=== PATIENT | male | born 1965 | race Caucasian/White ===

== ENCOUNTER 2021-12-26 10:16 | Emergency (ER) | payer MEDICARE, MEDICAID, SELFPAY ==
[2021-12-26 11:25] VITALS: BP 112/77; PULSE 92; RESP 18; TEMP 36.5; O2SAT 96; BMI 27.3
--- NOTE | 2021-12-26 13:56 | XR_ITS ---
WS: [id number] Exam: XR chest 1V portable [id number] Date/Time of Exam: 12/26/2021 2:03 PM Reason For Exam: chest pain The lungs are hyperinflated and clear. Normal cardiomediastinal silhouette. No pleural effusions. Reg ional bony elements are intact. XR/XR chest 1V portable [id number] IMPRESSION: 1. Pulmonary hyperinflation. No acute process.
--- NOTE | 2021-12-26 13:56 | ECG_ITS ---
[facility] Test Date: 2021-12-26 Pat Name: Logan Roque Department: Room: Gender: Male Senior Clinical Data Analyst: : 1965 Requested By: Jhonatan Luther Order Number: [id number] Ardon MD: Luisa Sharif M.D. Measurements Intervals [place] Rate: 95 P: 89 [place]: 131 QRS: 69 QRSD: 91 T: -38 QT: 357 QTc: 450 Interpretive Statements SINUS RHYTHM WITH SINUS ARRHYTHMIA MODERATE T-WAVE ABNORMALITY, CONSIDER INFERIOR ISCHEMIA [-0.1+ mV T-WAVE IN II/aVF] No previous ECG available for comparison Electronically Signed On 12-26-2021 16:44:39 CDT by Luisa Sharif M.D. [id number] f
--- NOTE | 2021-12-26 14:15 | W.ED.CHESTPA ---
HPI - Chest Pain General: Chief Complaint: Chest Pain Stated Complaint: BODY ACHES, PAIN, FLU LIKE SYMPTOMS Time Seen by Provider: 12/26/21 13:47 History of Present Illness: 56-year-old male presents to the emergency department chief complaint of generalized midsternal chest pain shortness of breath difficulty breathing with a mild productive cough with body aches and muscle aches been ongoing for greater than 1 week patient reports having a history of long-term smoking however reports no known history of asthma or COPD he does report having a previous history of heart attacks with cardiac stenting he does not recall any palpitations with the shortness of breath or chest discomfort he reports is non-exertional, he reports he has had a mild productive cough. Patient presents to the ER for further assessment and management. Associated symptoms: Reports dyspnea; Deny abdominal pain, fever(s), nausea, palpitations or vomiting Review of Systems General: Reports: 10 or more systems reviewed and unremarkable except in HPI and below Const: Denies: fever(s), chills, fatigue or malaise Eyes: Denies: change in vision or blurry vision Card: Reports: chest pain; Denies: palpitations Resp: Reports: dyspnea, productive cough and wheezing GI: Denies: abdominal pain, nausea or vomiting : Denies: flank pain Musc: Denies: extremity pain or extremity swelling Skin/Breast: Denies: rash or pruritus Neuro: Denies: headache(s) Psych: Denies: anxiety or depression Parth/Lymph: Denies: easy bleeding All/Imm: Denies: urticaria, throat swelling or facial swelling PFS ED PFSH: Social History Smoking and tobacco status: current every day smoker Physical Exam Const: COMMON NORMALS: no acute distress, patient oriented x3 and healthy appearing HENMT: COMMON NORMALS: normocephalic and atraumatic HEAD & SCALP: normocephalic and atraumatic Eye: COMMON NORMALS: Equal, round and reactive pupils present and EOMs intact bilaterally PUPIL: Yes Equal, round and reactive pupils present Neck/C-Spine: COMMON NORMALS: full ROM, supple and no JVD Lymph: LYMPHATIC: no lymphadenopathy noted Chest: COMMONS NORMALS: normal inspection of the chest and normal palpation of entire chest wall Resp: COMMON NORMALS: normal respiratory effort and No retractions EFFORT & INSPECTION: Yes able to speak in complete sentences and Yes symmetric chest movement AUSCULTATION: wheezes and diminished lung sounds OTHER: Diffuse reduced breath sounds appreciated bilaterally with expiratory wheezing noted bilaterally no crackles or rhonchi noted Cardio: COMMON NORMALS: no JVD, regular rate and regular rhythm RATE: regular rate and tachycardic (Slightly tachycardic on exam in low 100s) RHYTHM: regular rhythm GI: COMMON NORMALS: Normal to inspection, nondistended, normoactive bowel sounds present, Soft to palpation and non-tender INSPECTION: Yes normal to inspection PALPATION: Yes Soft to palpation : COMMON NORMALS: Yes no CVA tenderness BLADDER/KIDNEY EXAM: Yes no CVA tenderness Back/Pelvis: COMMON NORMALS: no CVA tenderness Extremity: COMMON NORMALS: normal to inspection and full ROM Neuro: COMMON NORMALS: patient oriented x3, CN's II-XII intact bilaterally, moves all extremities and no focal motor deficits Psych: COMMON NORMALS: mental status grossly normal, Normal thought process present, cooperative and normal affect THOUGHT PROCESS: Normal thought process present Skin: COMMON NORMALS: no rashes or lesions noted GENERAL SKIN EXAM: no rashes or lesions noted Course Vital Signs: Vital signs: Vital Signs Temperature 97.7 F 12/26/21 11:25 Pulse Rate 90 12/26/21 15:06 Respiratory Rate 15 12/26/21 15:06 Blood Pressure 133/85 12/26/21 15:06 Pulse Oximetry 98 12/26/21 15:06 MDM - Chest Pain Medical Decision Making Due to the patient's symptoms and condition lab work and imaging will be obtained IV will be established IV fluids provided for hydration underlying concerns of pneumonia versus acute bronchitis versus COPD exacerbation versus cardiac or prominent we will continue to follow. Lab work came back unremarkable 2 sets of troponins came back negative patient be subsequent discharged home advised to follow-up care in 2 to 3 days with patient advised to return the interim if any of his symptoms persist or worse. Lab Data : 12/26/21 14:52 12/26/21 14:52 Radiology Impressions Chest X-Ray 12/26/21 13:56 IMPRESSION: 1. Pulmonary hyperinflation. No acute process. Laboratory Results WBC 13.1 10^3/uL (4.0-10.0) H 12/26/21 14:52 RBC 5.45 10^6/uL (4.1-5.3) H 12/26/21 14:52 Hgb 16.3 g/dL (11.7-16.6) 12/26/21 14:52 Hct 47.4 % (42.0-52.0) 12/26/21 14:52 MCV 87.0 fl (80-94) 12/26/21 14:52 MCH 29.9 pg (28.0-34.0) 12/26/21 14:52 MCHC 34.4 g/dL (30.0-36.0) 12/26/21 14:52 RDW 13.6 % (12.1-15.1) 12/26/21 14:52 Plt Count 273 10^3/cmm (130-400) 12/26/21 14:52 MPV 8.9 fL (7.4-10.4) 12/26/21 14:52 Neut % (Auto) 74.8 % 12/26/21 14:52 Lymph % (Auto) 18.5 % 12/26/21 14:52 [place] % (Auto) 5.4 % 12/26/21 14:52 Eos % (Auto) 0.5 % 12/26/21 14:52 Baso % (Auto) 0.5 % 12/26/21 14:52 Neut # (Auto) 9.79 10^3/uL (1.8-7.7) H 12/26/21 14:52 Lymph # (Auto) 2.4 10^3/uL (0.8-4.8) 12/26/21 14:52 [place] # (Auto) 0.7 10^3/uL (0.2-0.9) 12/26/21 14:52 Eos # (Auto) 0.1 10^3/uL (0.0-0.8) 12/26/21 14:52 Baso # (Auto) 0.1 10^3/uL (0.0-0.1) 12/26/21 14:52 Nucleated RBC % (auto) 0 % 12/26/21 14:52 Nucleated RBCs # 0.0 /100WBC 12/26/21 14:52 Sodium 137 mmol/L (136-145) 12/26/21 14:52 Potassium 4.2 mmol/L (3.5-5.1) 12/26/21 14:52 Chloride 102 mmol/L (98-107) 12/26/21 14:52 Carbon Dioxide 22 mmol/L (22-29) 12/26/21 14:52 Anion Gap 17.2 (5-19) 12/26/21 14:52 BUN 5 mg/dL (6-20) L 12/26/21 14:52 Creatinine 0.5 mg/dL (0.7-1.2) L 12/26/21 14:52 GFR Calculation 170.8 mL/min (90-130) H 12/26/21 14:52 Glucose 116 mg/dL (65-115) H 12/26/21 14:52 POC Glucose 124 mg/dL (70-110) H 12/26/21 14:50 Calculated Osmolality 282 mOsm/kg (285-295) L 12/26/21 14:52 Calcium 10.0 mg/dL (8.5-10.5) 12/26/21 14:52 Total Bilirubin 0.5 mg/dL (0.15-1.2) 12/26/21 14:52 AST 14 U/L (0-40) 12/26/21 14:52 ALT 15 U/L (0-41) 12/26/21 14:52 Alkaline Phosphatase 85 IU/L (40-130) 12/26/21 14:52 Troponin T Baseline 8 ng/L (0-15) 12/26/21 14:52 Troponin T 120 Minute 6.69 ng/L (0-15) 12/26/21 16:50 NT-Pro-B Natriuret Pep 158 pg/mL (0-125) H 12/26/21 14:52 Total Protein 7.5 g/dL (6.6-8.7) 12/26/21 14:52 Albumin 4.7 g/dL (3.5-5.2) 12/26/21 14:52 Globulin 2.8 g/dL (1.3-4.6) 12/26/21 14:52 Lipase 20 U/L (13-60) 12/26/21 14:52 Influenza Type A Ag Negative (Negative) 12/26/21 15:11 Influenza Type B Ag Negative (Negative) 12/26/21 15:11 Discharge Plan Discharge Patient Disposition: Home Clinical Impression: Atypical chest pain, Acute bronchitis, Diffuse wheezing Condition: Stable Prescriptions: New azithromycin 250 mg tablet See Rx Instructions .ROUTE .COMPLEX Qty: 6 0RF Rx Instructions: For 500 mg dose pack: take 500 mg once daily for 3 days prednisone 20 mg tablet 20 mg PO BID 7 Days Qty: 14 0RF benzonatate 100 mg capsule 100 mg PO TID PRN (Reason: cough) Qty: 14 0RF ProAir HFA 90 mcg/actuation HFA aerosol inhaler 1 inh inhalation Q6H PRN (Reason: shortness of breath or wheezing) Qty: 6.7 0RF No Action acetaminophen [Tylenol] 325 mg capsule 325 mg PO QID PRN (Reason: Pain) 0RF gabapentin 300 mg capsule 300 mg PO TID 0RF duloxetine 30 mg capsule,delayed release(DR/EC) 30 mg PO DAILY 0RF Discharge Orders: Discharge ED (Routine); Ordered 12/26/21 Ordered By: Jhonatan Luther Referrals: Suresh Manuel MD [Physician] - 1-3 days (or your primary care doctor ) Discharge Diet: Usual diet Discharge Activity: Increase activity as tolerated Patient Instructions: Acute Bronchitis (ED), COPD (Chronic Obstructive Pulmonary Disease) (ED), Wheezing (ED) Activity Restrictions/Additional Instructions: Follow-up with your follow-up with your primary care doctor in 2 to 3 days, take medication as prescribed and return in the interim if any of his symptoms persist or worse. Coding Level of Care Code ED Forensic Anthropologist for Noelle Fwginette Exam Comprehensive
[2021-12-26 14:38] VITALS: BP 135/90; PULSE 89; RESP 16; O2SAT 99
[2021-12-26 14:55] LABS: Basophils # 0.1 10^3/uL (0.0-0.1); Basophils % 0.5 %; Eosinophils # 0.1 10^3/uL (0.0-0.8); Eosinophils % 0.5 %; Hematocrit 47.4 % (42.0-52.0); Hemoglobin 16.3 g/dL (11.7-16.6); Lymphocytes # 2.4 10^3/uL (0.8-4.8); Lymphocytes % 18.5 %; Mean Corpuscular HGB Conc 34.4 g/dL (30.0-36.0); Mean Corpuscular Hemoglobin 29.9 pg (28.0-34.0); Mean Platelet Volume 8.9 fL (7.4-10.4); Monocytes # 0.7 10^3/uL (0.2-0.9); Monocytes % 5.4 %; Neutrophils # 9.79 10^3/uL (1.8-7.7); Neutrophils % 74.8 %; Nucleated Red Blood Cells % 0 %; Platelet Count 273 10^3/cmm (130-400); Red Blood Count 5.45 10^6/uL (4.1-5.3); Red Cell Distribution Width 13.6 % (12.1-15.1); White Blood Count 13.1 10^3/uL (4.0-10.0)
[2021-12-26 14:57] LABS: Glucose Point of Care 124 mg/dL (70-110)
[2021-12-26] MEDS: aspirin 81 mg Chew Tablet 324 MG PO (15:01)
[2021-12-26] MEDS: sodium chloride 0.9% 1,000 ML 999 ML IV (15:02)
[2021-12-26] MEDS: ondansetron 2 mg/ML SDV 2 mL 4 MG IVP (15:04)
[2021-12-26 15:06] VITALS: BP 133/85; PULSE 90; RESP 15; O2SAT 98
[2021-12-26 15:19] LABS: Troponin(5th) Baseline 8 ng/L (0-15)
[2021-12-26 15:26] LABS: Alanine Aminotransferase 15 U/L (0-41); Albumin Level 4.7 g/dL (3.5-5.2); Alkaline Phosphatase 85 IU/L (40-130); Anion Gap 17.2 (5-19); Aspartate Amino Transferase 14 U/L (0-40); Blood Urea Nitrogen 5 mg/dL (6-20); Carbon Dioxide 22 mmol/L (22-29); Chloride 102 mmol/L (98-107); Globulin 2.8 g/dL (1.3-4.6); Glomerular Filtration Rate 170.8 mL/min (90-130); Glucose 116 mg/dL (65-115); Lipase 20 U/L (13-60); NT Pro B Type Natriuretic Pept 158 pg/mL (0-125); Osmolality Calculated 282 mOsm/kg (285-295); Potassium 4.2 mmol/L (3.5-5.1); Sodium 137 mmol/L (136-145); Total Bilirubin 0.5 mg/dL (0.15-1.2); Total Protein 7.5 g/dL (6.6-8.7)
[2021-12-26 15:44] LABS: Influenza A by IFA Negative (Negative); Influenza B by IFA Negative (Negative)
--- NOTE | 2021-12-26 15:56 | ECG_ITS ---
[facility] Test Date: 2021-12-26 Pat Name: Logan Roque Department: Room: Gender: Male Header Dock: : 1965 Requested By: Jhonatan Luther Order Number: [id number] Reva MD: Luisa Sharif M.D. Measurements Intervals [place] Rate: 78 P: 70 [place]: 142 QRS: 50 QRSD: 97 T: -45 QT: 388 QTc: 442 Interpretive Statements SINUS RHYTHM WITH OCCASIONAL VENTRICULAR PREMATURE COMPLEXES MODERATE T-WAVE ABNORMALITY, CONSIDER LATERAL ISCHEMIA [-0.1+ mV T-WAVE IN I/aVL/V5/V6] Compared to ECG 12/26/2021 11:30:56 Ventricular premature complex(es) now present Sinus arrhythmia no longer present T-wave abnormality still present Possible ischemia still present Electronically Signed On 12-26-2021 16:46:13 CDT by Luisa Sharif M.D. [id number]
[2021-12-26] MEDS: ketorolac 30 mg/mL INJ IVP (16:58)
[2021-12-26 17:19] LABS: Troponin 5 2HR 6.69 ng/L (0-15)
[2021-12-26 17:34] VITALS: BP 133/72; PULSE 88; RESP 18
[2021-12-26 17:47] LABS: Troponin 5 2HR Delta -1.31 ABS# (0-10)
== END 2021-12-26 17:36 | disposition home or self-care (01) ==
PROVIDERS: Emergency Medicine; Emergency Provider Emergency Medicine
DX: R07.89 Other chest pain (principal); J20.9 Acute bronchitis, unspecified; F17.200 Nicotine dependence, unspecified, uncomplicated; J44.9 Chronic obstructive pulmonary disease, unspecified; I25.2 Old myocardial infarction; Z95.5 Presence of coronary angioplasty implant and graft
CPT/HCPCS: 36416; 71045; 80053; 82962; 83690; 83880; 84484; 85025; 87804; 93005; 96361; 96374; 96375; 99284; J1885; J2405; J7030

== ENCOUNTER 2023-12-30 08:45 | Inpatient (IN) | payer MEDICARE, MEDICAID, SELFPAY ==
[2023-12-30] VITALS (41 sets, daily range): BP systolic 110–154; BP diastolic 65–103; PULSE 62–132; RESP 16–42; TEMP 36.8; O2SAT 82–99; BMI 23.4; BMI 21.7
--- NOTE | 2023-12-30 09:04 | XRR_ITS ---
PROCEDURE INFORMATION: Exam: XR Chest Exam date and time: 12/30/2023 9:12 AM Age: 58 years old Clinical indication: Cough and dyspnea and shortness of breath; Prior surgery; Surgery date: 6+ months; Surgery type: Open heart; Additional info: Dyspnea/cough TECHNIQUE: Imaging protocol: Radiologic exam of the chest. Views: 1 view. COMPARISON: CR XR chest 1V portable [id number] 12/26/2021 2:05 PM FINDINGS: Lungs: Marked elevation of the left hemidiaphragm and subsegmental left basilar atelectasis. COPD and interstitial prominence. Pleural spaces: Asymmetric right basilar airspace disease and pleural effusion, obscuring the right hemidiaphragm. . Heart/Mediastinum: Surgical ligation of left atrial appendage. Bones/joints: Osteopenia and degenerative change. Soft tissues: Skin aly to the right of midline. Gastrointestinal tract: Bowel dilatation the visualized left upper abdomen. XR/XR chest 1V portable [id number] IMPRESSION: 1. Asymmetric right basilar airspace disease and pleural effusion, obscuring the right hemidiaphragm. 2. Additional findings as described above.
[2023-12-30 09:24] LABS: ABG PH Result 7.46 (7.35-7.45); Alveolar-Arterial Oxygen Gradi 11.1 mmHg (5-10); Arterial Blood Gas Hematocrit 33.2 % (42-52); Base Excess ABG 7.1 mmol/L (-2.0-2.0); Blood Gas Allen Test Pos; Blood Gas Operator Identificat MONRO; Blood Gas Sample Site Brachial, right; Blood Gas Sample Type Arterial; Carboxyhemoglobin 1.4 %THgb (0.4-20.1); HCO3 ABG 31.8 mmol/L (22-26); HGB O2 Sat 90.1 % (95-100); Ionized Calcium Level - ABG 1.3 mmol/L (1.1-1.4); Methemoglobin 0.1 % (0.4-1.5); Oxygen Device NC; Oxygen Saturation ABG 91.5; PO2 ABG 60.4 mmHg (80.0-100.0); PO2 FiO2 Ratio Arterial Blood 0; Potassium Level - ABG 3.7 mmol/L (3.5-5.0); Total Hemoglobin 10.8 g/dL (14-18)
[2023-12-30 09:36] LABS: Troponin(5th) Baseline 22 ng/L (0-15)
[2023-12-30 09:46] LABS: Alanine Aminotransferase 10 U/L (0-41); Albumin Level 3.4 g/dL (3.5-5.2); Alkaline Phosphatase 129 U/L (40-130); Anion Gap 14.8 (5-19); Aspartate Amino Transferase 18 U/L (0-40); Blood Urea Nitrogen 9 mg/dL (8-23); Carbon Dioxide 28 mmol/L (22-29); Chloride 94 mmol/L (98-107); Creatinine Clr Calc Pharmacy 197.9678; Globulin 4.1 g/dL (1.3-4.6); Glomerular Filtration Rate 219.4 mL/min (90-130); Glucose 149 mg/dL (65-115); NT Pro B Type Natriuretic Pept 2187 pg/mL (0-125); Osmolality Calculated 277 mOsm/kg (285-295); Potassium 3.8 mmol/L (3.5-5.1); Sodium 133 mmol/L (136-145); Total Bilirubin 0.5 mg/dL (0.15-1.2); Total Protein 7.5 g/dL (6.6-8.7)
--- NOTE | 2023-12-30 10:08 | ECG_ITS ---
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 Measurements Intervals [place] Rate: 99 P: 75 [place]: 127 QRS: -9 QRSD: 109 T: 146 QT: 372 QTc: 479 Interpretive Statements SINUS RHYTHM WITH FREQUENT VENTRICULAR PREMATURE COMPLEXES MODERATE T-WAVE ABNORMALITY, CONSIDER LATERAL ISCHEMIA [-0.1+ mV T-WAVE IN I/aVL/V5/V6] Compared to ECG 12/26/2021 16:42:50 No significant changes Electronically Signed On 12-30-2023 18:30:34 CDT by Bryce Pierre M.D. [id number]
--- NOTE | 2023-12-30 10:33 | ED_ITS ---
HPI - SOB/Dyspnea 2 General: Chief Complaint: Shortness of Breath/Dyspnea Stated Complaint: Resp Issues Time Seen by Provider: 12/30/23 09:01 Source: patient Mode of arrival: ambulatory History of Present Illness: HPI Narrative: 58-year-old male presents to the emergen cy room with complaints of shortness of breath 2 days ago he had a spontaneous flash over with his oxygen concentrator while smoking he was seen in [place] for rose to his hands. He states since then has had progressively worsening time with breathing. Has a history of COPD and CHF. He did have some improvement with nebulizers and route. He is also complaining of shoulder pain from the fall he had no fractures on their evaluations at [place]. Denies chest pain. MD elicited complaint: shortness of breath and cough Pertinent past history: COPD Onset (ago): day(s) Timing: constant Severity: moderate Exacerbating factors: nothing Relieving factors: nothing Known history of: COPD Associated symptoms: Reports chest congestion and cough; Deny abdominal pain, chest pain, diaphoresis, dizziness, extremity pain, fever(s), hemoptysis, lightheadedness, myalgias, nausea, orthopnea, palpitations, paresthesias, polydipsia, polyuria, rash, sense of impending doom, syncope or vomiting Review of Systems 2 Const: Denies: fever(s), chills or diaphoresis Card: Denies: chest pain, palpitations, lightheadedness, syncope or orthopnea Resp: Reports: chest congestion; Denies: dyspnea or hemoptysis GI: Denies: abdominal pain, nausea or vomiting : Denies: dysuria, urinary frequency or urinary urgency Musc: Denies: neck pain, back pain or extremity pain Skin/Breast: Denies: rash Neuro: Denies: dizziness Endo: Denies: polyuria or polydipsia PFSH ED 2 PFSH: Medical History (Updated 01/08/24 @ 15:53 by Kadeem Zamora DO) History of MA (myocardial infarction) month ago Umbilical hernia Social History Smoking and tobacco/nicotine status: current every day tobacco/nicotine user Physical Exam 2 Const: GENERAL APPEARANCE: cooperative and comfortable O RIENTATION/CONSCIOUSNESS: Yes awake, Yes oriented to person, Yes oriented to place and Yes oriented to time HENMT: COMMON NORMALS: normocephalic, atraumatic and hearing grossly normal bilaterally HEAD & SCALP: normocephalic and atraumatic Resp: AUSCULTATION: rhonchi and wheezes Cardio: RATE: tachycardic GI: COMMON NORMALS: Soft to palpation and No hepatosplenomegaly present A USCULTATION: Yes normoactive bowel sounds PALPATION: Yes Soft to palpation, No Tenderness to palpation present (GI), No Guarding due to palpation present (GI) and Yes No hepatosplenomegaly present Extremity: COMMON NORMALS: normal to inspection, capillary refill normal, no clubbing, cyanosis or edema, no calf tenderness and no pedal edema Neuro: SENSORIUM/ORIENTATION: Yes oriented to person, Yes oriented to place and Yes oriented to time Skin: COMMON NORMALS: no rashes or lesions noted GENERAL SKIN EXAM: no rashes or lesions noted Course 2 Vital Signs: Vital signs: Vital Signs Temperature 97.6 F 01/04/24 11:42 Pulse Rate 95 01/04/24 16:29 Respiratory Rate 18 01/04/24 16:29 Blood Pressure 100/70 01/04/24 11:42 Pulse Oximetry 95 01/04/24 16:29 Oxygen Delivery Me thod Nasal Cannula 01/04/24 13:46 Oxygen Flow Rate 2 01/04/24 13:46 MDM - SOB/Dyspnea Medical Decision Making Pulmonary embolism pleural effusion exacerbation COPD rose on hands which has previously been evaluated at the burn clinic. Will admit Dr. Haywood is coming to see the patient to do thoracentesis we will hold off on heparin for the pulmonary embolism until he has completed his procedure. Discussed with hospitalist orders written Medical Records I reviewed the patient's medical records. Lab Data I reviewed the patient's lab results. 01/02/24 10:28 01/02/24 10:28 Labs/Radiology: Radiology Impressions Chest X-Ray 01/01/24 08:21 IMPRESSION: Cardiomegaly with mild congestion and small right pleural effusion. Laboratory Results WBC 16.12 10^3/uL (3.29-11.43) H 12/30/23 10:57 RBC 4.99 10^6/uL (3.85-5.65) 12/30/23 10:57 Hgb 11.90 g/dL (11.27-16.99) 12/30/23 10:57 Hct 39.9 % (37-53) 12/30/23 10:57 MCV 80.0 fl (82-101) L 12/30/23 10:57 MCH 23.8 pg (27-33) L 12/30/23 10:57 MCHC 29.8 g/dL (30-55) L 12/30/23 10:57 RDW 17.2 % (12.1-15.1) H 12/30/23 10:57 Plt Count 547 10^3/cmm (157-399) H 12/30/23 10:57 MPV 8.9 fL (7.4-10.4) 12/30/23 10:57 Neut % (Auto) 80.1 % 12/30/23 10:57 Lymph % (Auto) 8.3 % 12/30/23 10:57 [place] % (Auto) 10.8 % 12/30/23 10:57 Eos % (Auto) 0.1 % 12/30/23 10:57 Baso % (Auto) 0.2 % 12/30/23 10:57 Neut # (Auto) 12.91 10^3/uL (1.8-7.7) H 12/30/23 10:57 Lymph # (Auto) 1.3 10^3/uL (0.8-4.8) 12/30/23 10:57 [place] # (Auto) 1.7 10^3/uL (0.2-0.9) H 12/30/23 10:57 Eos # (Auto) 0.0 10^3/uL (0.0-0.8) 12/30/23 10:57 Baso # (Auto) 0.0 10^3/uL (0.0-0.1) 12/30/23 10:57 Nucleated RBC % (auto) 0 % 12/30/23 10:57 Nucleated RBCs # 0.0 /100WBC 12/30/23 10:57 Differential Comment Yes 12/30/23 16:00 Specimen Type Arterial 12/30/23 09:11 Sample Site Brachial, right 12/30/23 09:11 ABG pH 7.46 (7.35-7.45) H 12/30/23 09:11 ABG pCO2 45.0 mmHg (35-45) 12/30/23 09:11 ABG pO2 60.4 mmHg (80.0-100.0) L 12/30/23 09:11 ABG PO2/FiO2 Ratio 0 12/30/23 09:11 ABG HCO3 31.8 mmol/L (22-26) H 12/30/23 09:11 ABG O2 Saturation 91.5 12/30/23 09:11 ABG Base Excess 7.1 mmol/L (-2.0-2.0) H 12/30/23 09:11 Humberto Test Pos 12/30/23 09:11 A-a O2 Gradient 11.1 mmHg (5-10) H 12/30/23 09:11 Hematocrit 33.2 % (42-52) L 12/30/23 09:11 Hgb O2 Saturation 90.1 % (95-100) L 12/30/23 09:11 Carboxyhemoglobin 1.4 %THgb (0.4-20.1) 12/30/23 09:11 Methemoglobin 0.1 % (0.4-1.5) L 12/30/23 09:11 Total Hemoglobin 10.8 g/dL (14-18) L 12/30/23 09:11 Sodium 137.0 mmol/L (131-143) 12/30/23 09:11 Potassium 3.7 mmol/L (3.5-5.0) 12/30/23 09:11 Glucose 144.0 mg/dL (70-115) H 12/30/23 09:11 Ionized Calcium 1.3 mmol/L (1.1-1.4) 12/30/23 09:11 O2 Delivery Device Nc 12/30/23 09:11 O2 Liters/Min 2.0 % 12/30/23 09:11 FiO2 28.0 % 12/30/23 09:11 Industrial Roofer Helper ID [place] 12/30/23 09:11 Sodium 133 mmol/L (136-145) L 12/30/23 09:05 Potassium 3.8 mmol/L (3.5-5.1) 12/30/23 09:05 Chloride 94 mmol/L (98-107) L 12/30/23 09:05 Carbon Dioxide 28 mmol/L (22-29) 12/30/23 09:05 Anion Gap 14.8 (5-19) 12/30/23 09:05 BUN 9 mg/dL (8-23) 12/30/23 09:05 Creatinine 0.4 mg/dL (0.7-1.2) L 12/30/23 09:05 GFR Calculation 219.4 mL/min (90-130) H 12/30/23 09:05 Glucose 149 mg/dL (65-115) H 12/30/23 09:05 Calculated Osmolality 277 mOsm/kg (285-295) L 12/30/23 09:05 Lactic Acid 1.4 mmol/L (0.5-2.2) 12/30/23 15:10 Calcium 9.0 mg/dL (8.5-10.5) 12/30/23 09:05 Total Bilirubin 0.5 mg/dL (0.15-1.2) 12/30/23 09:05 AST 18 U/L (0-40) 12/30/23 09:05 ALT 10 U/L (0-41) 12/30/23 09:05 Alkaline Phosphatase 129 U/L (40-130) 12/30/23 09:05 Troponin T Baseline 22 ng/L (0-15) H 12/30/23 09:05 Troponin T 120 Minute 19.01 ng/L (0-15) H 12/30/23 11:50 Delta Troponin T -2.99 ABS# (0-10) L 12/30/23 11:50 Troponin T Hi Sens 6Hr 18.12 ng/L (0-15) H 12/30/23 15:10 Troponin T Hi Sens 6Hr Delta -3.88 ng/L (0-12) L 12/30/23 15:10 NT-Pro-B Natriuret Pep 2187 pg/mL (0-125) H 12/30/23 09:05 Total Protein 7.5 g/dL (6.6-8.7) 12/30/23 09:05 Albumin 3.4 g/dL (3.5-5.2) L 12/30/23 09:05 Globulin 4.1 g/dL (1.3-4.6) 12/30/23 09:05 Procalcitonin 0.06 ng/mL (0-0.5) 12/30/23 11:54 Urine Color Yellow (Yellow) 12/30/23 13:07 Urine Appearance Clear (CLEAR) 12/30/23 13:07 Urine pH 6.5 (5-7) 12/30/23 13:07 Ur Specific [place] 1.010 (1.005-1.030) 12/30/23 13:07 Urine Protein 1+ (Negative) H 12/30/23 13:07 Urine Glucose (UA) Norm (Normal) 12/30/23 13:07 Urine Ketones 1+ (Negative) H 12/30/23 13:07 Urine Blood Neg (Negative) 12/30/23 13:07 Urine Nitrate Negative (Negative) 12/30/23 13:07 Urine Bilirubin 1+ (Negative) H 12/30/23 13:07 Urine Urobilinogen 1 mg/dL (Negative) H 12/30/23 13:07 Ur Leukocyte Esterase Trace (Negative) H 12/30/23 13:07 Urine RBC 0-4 /hpf (0-2) H 12/30/23 13:07 Urine WBC 0-4 /hpf (0-5) H 12/30/23 13:07 Ur Squamous Epith Cells 0-4 /hpf (0-5) H 12/30/23 13:07 Amorphous Sediment Not Reportable 12/30/23 13:07 Urine Bacteria Trace /hpf (NONE) 12/30/23 13:07 Urine Mucus 2+ /hpf 12/30/23 13:07 Fluid Color Red 12/30/23 16:00 Fluid Appearance Cloudy 12/30/23 16:00 Fluid Specific Grav 1.010 12/30/23 16:00 Fluid pH 8.0 12/30/23 16:00 Fluid WBC 1666 /uL 12/30/23 16:00 Fluid RBC 283.000 10^3/uL 12/30/23 16:00 Fld Polynuclear WBCs # 0.796 12/30/23 16:00 Fld Polynuclear WBCs % 47.800 % 12/30/23 16:00 Fl Mononucl WBCs #(Auto) 0.870 12/30/23 16:00 Fl Mononuclear % Auto 52.200 % 12/30/23 16:00 Fld Crystal Laterality Right pleural fluid 12/30/23 16:00 Fluid Glucose 143.0 mg/dL 12/30/23 16:00 Fluid Albumin 2.7 g/dL 12/30/23 16:00 Fluid LDH 1238 U/L 12/30/23 16:00 Fluid Alk Phosphatase 78 IU/L 12/30/23 16:00 Fluid Cholesterol 90 mg/dL (0-200) 12/30/23 16:00 Fluid Triglycerides 49 mg/dL (0-150) 12/30/23 16:00 Fluid Uric Acid 3 mg/dL 12/30/23 16:00 Peritoneal Amylase TNP 12/30/23 16:00 Pleural Total Protein 5.1 g/dL 12/30/23 16:00 Pleural Amylase <10 U/L 12/30/23 16:00 All radiology interpretation(s) finalized by discharge Discharge Plan Discharge Patient Disposition: Admitted As Inpatient Admit Provider: Radha Lagos Clinical Impression: Pulmonary embolism, Oxygen dependent, Acute exacerbation of chronic obstructive airways disease, Pleural effusion on right, 2nd deg burn hand-mult Condition: Stable Discharge Diet: Cardiac Discharge Activity: Increase activity as tolerated, Use walker/crutches as instructed, As per PT/OT instructions and Oxygen as instructed Coding Level of Care Code ED Bracelet Former for Noelle Gore
--- NOTE | 2023-12-30 10:37 | CT_ITS ---
WS: [id number] CT CHEST ANGIOGRAPHY WITH REFORMATS HISTORY: abnotmal CXR/chest pain TECHNIQUE: Contiguous axial images are obtained through the chest during arterial injection of intrav enous contrast. Images are reconstructed to evaluate the pulmonary arteries. MIP imaging also reviewe d. All CT scans at [facility] use at least one of these dose optimization techniques: automat ed exposure control; mA and/or kV adjustment per patient size (includes targeted exams where dose is matched to clinical indication); or iterative reconstruction. CONTRAST: Omnipaque 350; 100 mL IV. DLP: 359.63 mGy.cm COMPARISON: None available. Adequate opacification of the central pulmonary arteries. No definite pulmonary embolism. Limited opa cification of the segmental and distal branches. No PE identified. Atherosclerosis aorta. Prior CABG. There is marked dehiscence at the sternotomy site. At the sternotomy site there is fat st randing. There are also surgical sutures along the anterior chest wall. Small fluid collection measur ing 2.5 x 0.9 cm in the anterior LEFT mid thorax which may be a small abscess. Soft tissue inflammati on extends to the inferior sternotomy site to about the RIGHT pericardium. There is a small pericardi al effusion. Marked enlargement of the LEFT heart chambers. Low-attenuation fluid collection posterior mid RIGHT pleural space. Fluid collection extends inferior ly. There is a small layering associated pleural effusion. Compressive atelectasis at the lung bases, LEFT greater than RIGHT. IMPRESSION: 1. No central pulmonary embolism. 2. Indeterminate for peripheral nonobstructing segmental emboli. 3. Soft tissue inflammation along the central chest wall along with sternal dehiscence. There is no fluid collection but mediastinitis needs to be considered. Dehiscence of the sternotomy site. 4. There is a small anterior pleural collection containing air in the upper LEFT chest. Small pleura l-based abscess is not excluded. 5. Additional loculated RIGHT pleural effusion with additional free-flowing small RIGHT effusion.
[2023-12-30] MEDS: dexamethasone 10 mg/mL INJ IM (10:51)
[2023-12-30 11:05] LABS: Basophils % 0.2 %; Eosinophils % 0.1 %; Hematocrit 39.9 % (37-53); Lymphocytes # 1.3 10^3/uL (0.8-4.8); Lymphocytes % 8.3 %; Mean Corpuscular HGB Conc 29.8 g/dL (30-55); Mean Corpuscular Hemoglobin 23.8 pg (27-33); Mean Platelet Volume 8.9 fL (7.4-10.4); Monocytes # 1.7 10^3/uL (0.2-0.9); Monocytes % 10.8 %; Neutrophils # 12.91 10^3/uL (1.8-7.7); Neutrophils % 80.1 %; Nucleated Red Blood Cells % 0 %; Platelet Count 547 10^3/cmm (157-399); Red Blood Count 4.99 10^6/uL (3.85-5.65); Red Cell Distribution Width 17.2 % (12.1-15.1); White Blood Count 16.12 10^3/uL (3.29-11.43)
--- NOTE | 2023-12-30 11:24 | ECG_ITS ---
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 Measurements Intervals [place] Rate: 106 P: 91 [place]: 131 QRS: 18 QRSD: 120 T: 105 QT: 358 QTc: 475 Interpretive Statements SINUS TACHYCARDIA WITH OCCASIONAL VENTRICULAR PREMATURE COMPLEXES INFERIOR MYOCARDIAL INFARCTION , PROBABLY OLD [40+ ms Q WAVE AND/OR ST/T ABNORMALITY IN II/aVF] MODERATE T-WAVE ABNORMALITY, CONSIDER LATERAL ISCHEMIA [-0.1+ mV T-WAVE IN I/aVL/V5/V6] Compared to ECG 12/30/2023 10:08:17 Myocardial infarct finding now present Sinus rhythm no longer present T-wave abnormality still present Possible ischemia still present Electronically Signed On 12-30-2023 18:53:54 CDT by Bryce Pierre M.D. [email or web address]
[2023-12-30] MEDS: ipratropium-albuterol 3 mL Neb INHALATION (11:25)
[2023-12-30 11:26] LABS: Lactic Sepsis W/Reflex 1.6 mmol/L (0.5-2.2)
[2023-12-30] MEDS: iohexol 350 mg/mL 500 mL Btl (per mL) IV (11:28)
--- NOTE | 2023-12-30 12:04 | PC.PHAR ---
PT STATES HIS SON HAS BEEN FILLING HIS MED [employer]SULT[employer] PT STATES HIS SON ISNT ABLE TO KEEP DOING IT STATES HE NEEDS HELP SETTING HIS MEDS UP-CALLED PTS SON SHANTE [phone] STATES HE DOESN'T KNOW PTS MEDS WITHOUT THE BOTTLES STATES THE PT LIVES 30 MINUTES AWAY AND ISNT GOING TO GET THEM-CALLED PTS PHARMACY AND VERIFIED WHAT HAS BEEN FILLED RECENTLY-[facility] STATES ON 10/22/23 30D/S THEY FILLED LIPITOR 80MG HS NO REFILLS-KCL 20MEQ BID FILLED 10/26/23 30D/S NO REFILLS-AND LASIX 20MG BID FILLED 10/22/23 30D/S NO REFILLS-MEDICATIONS ENTERED ARE THE OTHER MEDS [facility] HAS FILLED RECENTLY-
[2023-12-30 12:14] LABS: Troponin 5 2HR 19.01 ng/L (0-15)
[2023-12-30 12:15] LABS: Troponin 5 2HR Delta -2.99 ABS# (0-10)
[2023-12-30 13:52] LABS: Add Urine Microscopic? YES; Bacteria Urine TRACE /hpf; Bilirubin Urine 1+ (Negative); Blood Urine Neg (Negative); Glucose Urine UA Norm (Normal); Ketones Urine 1+ (Negative); Leukocyte Esterase Urine Trace (Negative); Mucus Urine 2+ /hpf; Nitrate Urine Negative (Negative); Protein Urine 1+ (Negative); RBC Urine 0-4 /hpf (0-2); Squamous Epithelial Cell Urine 0-4 /hpf (0-5); Urine Appearance Clear (CLEAR); Urine Color Yellow (Yellow); Urobilinogen Urine 1 mg/dL (Negative); WBC Urine 0-4 /hpf (0-5); pH Urine 6.5 (5-7)
[2023-12-30 13:53] LABS: Add Urine Culture? No
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
--- NOTE | 2023-12-30 14:36 | PM.HP ---
Providers/Chief Complaint Admitting Physician: Dr. Radha Lagos Primary Care Provider: Dr. Angel Park Chief Complaint: Resp Issues History of Present Illness Logan Roque is a 58 year old male Medications/Allergies Home Medications Medication Instructions Recorded Confirmed Last Taken Type albuterol sulfate 90 mcg/actuation 1 inh inhalation Q6H PRN shortness 12/26/21 12/30/23 Unknown Rx aerosol inhaler (ProAir HFA) of breath or wheezing #6.7 grams duloxetine 30 mg capsule,delayed 30 mg PO DAILY 12/26/21 12/30/23 Unknown History release gabapentin 300 mg capsule 300 mg PO TID 12/26/21 12/30/23 Unknown History amoxicillin 875 mg-potassium 1 tab PO BID 12/30/23 12/30/23 Unknown History clavulanate 125 mg tablet clopidogrel 75 mg tablet 75 mg PO DAILY 12/30/23 12/30/23 Unknown History fluconazole 200 mg tablet 200 mg PO EVERY OTHER DAY 12/30/23 12/30/23 Unknown History hydrocodone 10 mg-acetaminophen 1 - 2 tab PO Q6H PRN Pain 12/30/23 12/30/23 Unknown History 325 mg tablet metoprolol succinate 25 mg 12.5 mg PO DAILY 12/30/23 12/30/23 Unknown History tablet,extended release 24 hr nitroglycerin 0.4 mg sublingual 0.4 mg sublingual Q5M PRN Chest 12/30/23 12/30/23 Unknown History tablet (Nitrostat) Pain oxycodone-acetaminophen 5 mg-325 1 tab PO Q6H PRN Pain 12/30/23 12/30/23 Unknown History mg tablet pantoprazole 40 mg tablet,delayed 40 mg PO DAILY 12/30/23 12/30/23 Unknown History release umeclidinium 62.5 mcg/actuation 1 inh inhalation DAILY 12/30/23 12/30/23 Unknown History blister powder for inhalation (Incruse Ellipta) Allergies Allergy/AdvReac Type Severity Reaction Status Date / Time diazepam [From Valium] AdvReac itch Verified 06/13/22 14:44 PFSH Acute PFSH: Medical History (Updated 06/13/22 @ 15:32 by MAO Smith) Umbilical hernia Social History Smoking and tobacco/nicotine status: current every day tobacco/nicotine user Vitals/I&O/Wt Last Vital Signs Temp 98.2 F 12/30/23 08:48 Pulse 119 H 12/30/23 13:15 Resp 28 H 12/30/23 13:15 BP 132/87 12/30/23 13:15 Pulse Ox 90 12/30/23 13:15 O2 Del Method Nasal Cannula 12/30/23 11:27 O2 Flow Rate 2 12/30/23 11:27 Weight last 48 hrs Weight 159 lb Data 12/30/23 10:57 12/30/23 09:05 Micro: Microbiology 12/30/23 10:57 Blood Culture - Preliminary Blood SPECIMEN COLLECTED 12/30/23 10:57 Blood Culture - Preliminary Blood SPECIMEN COLLECTED Coding Level of Care Code Acute Code for Shannong Sofía
[2023-12-30 15:13] LABS: Procalcitonin 0.06 ng/mL (0-0.5)
--- NOTE | 2023-12-30 15:28 | ECG_ITS ---
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 Measurements Intervals [place] Rate: 113 P: 95 [place]: 130 QRS: 37 QRSD: 96 T: 111 QT: 336 QTc: 462 Interpretive Statements SINUS TACHYCARDIA WITH FREQUENT VENTRICULAR PREMATURE COMPLEXES WITH OCCASIONAL SUPRAVENTRICULAR PREMATURE COMPLEXES POSSIBLE INFERIOR MYOCARDIAL INFARCTION , PROBABLY OLD [30 ms Q WAVE IN II/aVF] MODERATE T-WAVE ABNORMALITY, CONSIDER LATERAL ISCHEMIA [-0.1+ mV T-WAVE IN I/aVL/V5/V6] Compared to ECG 12/30/2023 11:24:28 No significant changes Electronically Signed On 12-30-2023 18:55:21 CDT by Bryce Pierre M.D. [id number]
[2023-12-30 15:33] LABS: Lactic Sepsis W/Reflex 1.4 mmol/L (0.5-2.2)
[2023-12-30 15:34] LABS: Troponin 5 6HR 18.12 ng/L (0-15)
[2023-12-30 15:35] LABS: Troponin 5 6HR Delta -3.88 ng/L (0-12)
--- NOTE | 2023-12-30 16:03 | XRR_ITS ---
PROCEDURE INFORMATION: Exam: XR Chest Exam date and time: 12/30/2023 4:09 PM Age: 58 years old Clinical indication: Device placement; Other: Post thoracentesis; Additional info: Post right thoracentesis TECHNIQUE: Imaging protocol: Radiologic exam of the chest. Views: 1 view. COMPARISON: CT angio chest PE protcl [id number] 12/30/2023 11:14 AM FINDINGS: Lungs: No focal consolidation. No convincing evidence of pneumothorax. Small residual right-sided pleural effusion, improved in comparison to prior radiographs. There is elevation of the left hemidiaphragm with left basilar subsegmental atelectasis. Heart/Mediastinum: Postsurgical changes of the mediastinum compatible with prior CABG. Left atrial appendage ligation clip noted in place. Cardiomediastinal silhouette is otherwise within normal limits. Bones/joints: No evidence of acute osseous abnormality. XR/XR chest 1V portable [id number] IMPRESSION: 1. Status post thoracentesis with significant decreased in size in the right-sided pleural effusion. No convincing evidence of pneumothorax. Note that trace pneumothoraces may not be radiographically evident.
[2023-12-30] MEDS: sodium chloride 0.9% 1,000 ML 999 ML IV (16:24)
[2023-12-30] MEDS: methylPREDNISolone sod succ 40 mg/mL INJ IVP (16:26)
[2023-12-30] MEDS: vancomycin 1,250 MG/250 ML PIGGYBACK 250 MG IV (16:28)
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
--- NOTE | 2023-12-30 16:41 | PM.ACPR ---
Procedure/Consent Time out: Time Out Performed: Yes Consent: Consent for Procedure: Consent obtained from patient Procedure Narrative: Pulmonary & Critical Care Medicine Procedure - Ultrasound guided Thoracentesis Procedure: CPT code 62400 thoracentesis, needle or catheter, aspiration of the pleural space; with imaging guidance Indication: Loculated right pleural effusion. C56.2 Mig Welder(s): Cooper Bertrand MD [facility] Clinical history: 58-year-old male with past medical history of COPD, CHF-had a fall couple of days ago-comes to emergency room with worsening shortness of breath. Imaging showed loculated right pleural effusion. Procedure performed to rule out empyema/hemothorax. Technique: The study was performed in an ACR accredited facility. Medication reconciliation form reviewed and any changes related this procedure resolved. Report: The procedure for thoracentesis was explained to the patient including the risks, benefits and possible complications. The patient was given the opportunity to ask questions, wished to proceed, and signed the written informed consent form. Using ultrasound guidance, a safe route of access was identified into the right pleural space. The site was then prepped and draped using maximal sterile barrier technique. The 1% lidocaine was used for local anesthetic. With sonographic guidance, a 6 Guamanian thoracentesis catheter was placed with return of 5 cc hemorrhagic pleural fluid. The catheter was slipped into the pleural cavity and approximately 400 cc dark bloody pleural fluid was removed. The patient tolerated the procedure well without any immediate complications. Impression: 1. Successful ultrasound-guided right thoracentesis with removal of approximately 400 cc dark bloody pleural fluid. ICD-10 code-J90 pleural effusion, not elsewhere classified Prior to thoracentesis-loculated pleural effusion Postthoracentesis Acute Procedures Epistaxis Control: Time out performed: Yes
--- NOTE | 2023-12-30 16:48 | PC.NURSE ---
Procedure, Right side Thoracentesis consent was signed by patient, this RN, and Dr. Bertrand. Dr. Bertrand explained procedure to patient and answered all questions. Time Out was preformed; patient, , procedure, and location confirmed by RN and provider. Beginning vitals were stable at HR 112, 91% on 2L NC, bp was 113/66, and respirations 26. pt was placed in tripod position on table and provider started procedure. there was approx 400ml of fluid removed. sample labeled and taken to lab by this RN. provider to put in orders for this RN to collect specimen.
[2023-12-30 16:53] LABS: Color, Body Fluid RED
[2023-12-30 16:54] LABS: Apprearance, Body Fluid CLOUDY; Cyto Order Verification No Order; PATH Referral YES
[2023-12-30 17:03] LABS: Body Fluid Polynuclear #Cells 0.796; Body Fluid WBC 1666 /uL
[2023-12-30 17:35] LABS: Albumin Body Fluid 2.7 g/dL; Fluid Alkaline Phos. 78 IU/L
[2023-12-30 17:36] LABS: Cholesterol Body Fluid 90 mg/dL (0-200); LDH Body Fluid 1238 U/L; Triglycerides Body Fluid 49 mg/dL (0-150); Uric Acid Body Fluid 3 mg/dL
[2023-12-30 17:37] LABS: Total Protein Pleural Fluid 5.1 g/dL
[2023-12-30 17:38] LABS: Fluid Laterality RIGHT PLEURAL FLUID
[2023-12-30] MEDS: piperacillin-tazobactam 3.375 GM in sodium chloride 0.9% (plus) 50 ML IV (18:12)
[2023-12-30] MEDS: sodium chloride 0.9% 1,000 ML 75 ML IV (19:05)
[2023-12-30] MEDS: heparin 5,000 unit/mL INJ 1 mL IV (19:30)
[2023-12-30] MEDS: heparin drip 25,000 UNIT/500 ML PREMIX 20.1900000000000013 UNIT IV (19:35)
[2023-12-30] MEDS: oxyCODONE-APAP 5-325 mg Tablet 1 TAB PO (21:59)
[2023-12-30] MEDS: ondansetron 2 mg/ML SDV 2 mL 4 MG IVP (22:01)
--- NOTE | 2023-12-30 22:27 | XRR_ITS ---
PROCEDURE INFORMATION: Exam: XR Chest Exam date and time: 12/30/2023 10:50 PM Age: 58 years old Clinical indication: Shortness of breath; Additional info: Dyspnea/cough TECHNIQUE: Imaging protocol: Radiologic exam of the chest. Views: 1 view. COMPARISON: CR XR chest 1V portable [id number] 12/30/2023 4:09 PM FINDINGS: Lungs: No focal consolidation. There is elevation of the left hemidiaphragm with subsegmental atelectasis. Pleural spaces: No evidence of pneumothorax. Small right-sided pleural effusion. Heart/Mediastinum: Postsurgical changes of the mediastinum compatible with prior CABG. Cardiomediastinal silhouette is otherwise within normal limits. Left atrial appendage ligation clip noted. Bones/joints: No evidence of acute osseous abnormality. XR/XR chest 1V portable [id number] IMPRESSION: 1. Small residual right-sided pleural effusion. 2. Elevation of the left hemidiaphragm with subsegmental atelectasis.
[2023-12-31] VITALS (55 sets, daily range): BP systolic 101–154; BP diastolic 66–106; PULSE 92–127; RESP 20–50; TEMP 36.1–36.6; O2SAT 70–99; BMI 22.4
[2023-12-31] MEDS: piperacillin-tazobactam 3.375 GM in sodium chloride 0.9% (plus) 50 ML IV ×3 (01:33→16:51)
[2023-12-31] MEDS: acetaminophen 325 mg Tablet 650 MG PO ×2 (02:56→19:28)
[2023-12-31] MEDS: methylPREDNISolone sod succ 40 mg/mL INJ IVP ×2 (02:57→14:25)
[2023-12-31] MEDS: vancomycin 1,250 MG/250 ML PIGGYBACK 250 MG IV ×2 (02:57→14:25)
[2023-12-31 02:58] LABS: Basophils % 0.1 %; Hematocrit 35.7 % (37-53); Lymphocytes # 0.5 10^3/uL (0.8-4.8); Lymphocytes % 4.5 %; Mean Corpuscular HGB Conc 29.7 g/dL (30-55); Mean Corpuscular Hemoglobin 23.4 pg (27-33); Mean Corpuscular Volume 78.8 fl (82-101); Mean Platelet Volume 9.1 fL (7.4-10.4); Monocytes # 0.6 10^3/uL (0.2-0.9); Neutrophils # 10.28 10^3/uL (1.8-7.7); Nucleated Red Blood Cells % 0 %; Platelet Count 576 10^3/cmm (157-399); Red Blood Count 4.53 10^6/uL (3.85-5.65); Red Cell Distribution Width 17.3 % (12.1-15.1); White Blood Count 11.43 10^3/uL (3.29-11.43)
[2023-12-31 03:11] LABS: Partial Thromboplastin Time 51.3 SECONDS (23.9-36.7)
[2023-12-31 03:23] LABS: Alanine Aminotransferase 10 U/L (0-41); Albumin Level 3.2 g/dL (3.5-5.2); Alkaline Phosphatase 123 U/L (40-130); Aspartate Amino Transferase 16 U/L (0-40); Blood Urea Nitrogen 12 mg/dL (8-23); Calcium 9.6 mg/dL (8.5-10.5); Carbon Dioxide 30 mmol/L (22-29); Chloride 99 mmol/L (98-107); Globulin 4.6 g/dL (1.3-4.6); Glomerular Filtration Rate 169.6 mL/min (90-130); Glucose 188 mg/dL (65-115); Magnesium 2.1 mg/dL (1.7-2.3); Osmolality Calculated 291 mOsm/kg (285-295); Phosphorus 3.1 mg/dL (2.5-4.5); Sodium 138 mmol/L (136-145); Total Bilirubin 0.4 mg/dL (0.15-1.2); Total Protein 7.8 g/dL (6.6-8.7)
[2023-12-31] MEDS: heparin 5,000 unit/mL INJ 1 mL IV (03:51)
[2023-12-31] MEDS: oxyCODONE-APAP 5-325 mg Tablet 1 TAB PO ×4 (04:07→22:03)
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
[2023-12-31] MEDS: duloxetine 30 mg Capsule PO (08:41)
[2023-12-31] MEDS: metoprolol succinate ER (24 HR) 25 mg Tablet 12.5 MG PO (08:41)
[2023-12-31] MEDS: pantoprazole DR 40 mg Tablet PO (08:41)
[2023-12-31] MEDS: clopidogrel 75 mg Tablet PO (08:41)
[2023-12-31] MEDS: ipratropium-albuterol 3 mL Neb INHALATION (08:55)
[2023-12-31 10:42] LABS: Partial Thromboplastin Time 48.9 SECONDS (23.9-36.7)
--- NOTE | 2023-12-31 15:53 | ECG_ITS ---
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 Measurements Intervals [place] Rate: 90 P: 60 IA: 101 QRS: -17 QRSD: 105 T: 135 QT: 364 QTc: 446 Interpretive Statements SINUS RHYTHM WITH SHORT IA INTERVAL WITH FREQUENT VENTRICULAR PREMATURE COMPLEXES Nonspecific T wave changes. Possible old inferior NH Compared to ECG 12/30/2023 15:28:02 Short IA interval now present Sinus tachycardia no longer present Possible ischemia no longer present Electronically Signed On 01-02-2024 19:14:18 CDT by Bryce Pierer M.D. [email or web address]
--- NOTE | 2023-12-31 16:04 | PC.NURSE ---
Oxymask Patient prefers Oxymask vs. Nasal cannula for comfort.
[2023-12-31 16:06] LABS: Partial Thromboplastin Time 53.5 SECONDS (23.9-36.7)
[2023-12-31 16:10] LABS: Troponin(5th) Baseline 15 ng/L (0-15)
--- NOTE | 2023-12-31 17:47 | ECG_ITS ---
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 Measurements Intervals [place] Rate: 92 P: 74 KS: 116 QRS: -9 QRSD: 105 T: 119 QT: 340 QTc: 422 Interpretive Statements SINUS RHYTHM WITH SHORT [place] INTERVAL WITH FREQUENT VENTRICULAR PREMATURE COMPLEXES MODERATE T-WAVE ABNORMALITY, CONSIDER ANTEROLATERAL ISCHEMIA [-0.1+ mV T-WAVE IN V3-V6] Compared to ECG 12/31/2023 15:53:57 T-wave abnormality now present Possible ischemia now present Electronically Signed On 01-02-2024 19:46:04 CDT by Bryce Pierre M.D. [email or web address]
[2023-12-31 18:37] LABS: Troponin 5 2HR 14.17 ng/L (0-15)
[2023-12-31 18:42] LABS: Troponin 5 2HR Delta -0.83 ABS# (0-10)
[2023-12-31] MEDS: ondansetron 2 mg/ML SDV 2 mL 4 MG IVP (19:19)
[2023-12-31] MEDS: heparin drip 25,000 UNIT/500 ML PREMIX 23 UNIT IV (19:19)
--- NOTE | 2023-12-31 21:10 | P.PN_ITS ---
Subjective 2 Subjective: Patient seen at bedside in ICU Appears to be in mild respiratory distress-currently requiring 6 L on OxiMax saturating 97% Chest appears to be related-with sternal wound dehiscence-hospitalist requested for records regarding his CABG and currently awaiting Recommended to consult CT surgery Medications: Reviewed: Yes Vitals/I&O/Wt Last Vital Signs Temp 97.9 F 12/31/23 20:00 Pulse 93 12/31/23 20:00 Resp 30 H 12/31/23 20:00 BP 101/66 12/31/23 20:00 Pulse Ox 97 12/31/23 20:00 O2 Del Method Oxymask 12/31/23 20:00 O2 Flow Rate 6 12/31/23 20:00 12/31/23 12/31/23 12/31/23 06:59 14:59 22:59 Intake Total 1186.904 / 3400.654 1074.55 / 1074.55 798.546 / 1873.096 Output Total 300 / 400 300 / 300 700 / 1000 Balance 886.904 / 3000.654 774.55 / 774.55 98.546 / 873.096 Weight last 48 hrs Weight 152 lb Weight 147 lb Weight 159 lb Physical Exam 2 Narrative: General: alert, NAD HEENT: conj clear, EOMI, PERRL, mmm, Neck: supple, no meningismus Heme: no cervical LAP Respiratory: Inspection: No visible deformity of the chest wall Palpation: Trachea is mildly deviated to the right, bilateral symmetric expansion Percussion: Bilateral tympanic percussion note both anterior and posteriorly Auscultation: Bilateral clear to auscultation both anterior and posteriorly, no crackles wheezing or rhonchi Cardiovascular: rrr, nl s1s2, no mrg Abdomen: soft, nt, nd, no r/g, bs+ Extremities: pulses +, no edema, no c/c : no CVA tenderness Skin: intact, no rash MSK: no back or neck pain Neurologic: grossly intact Data 12/31/23 01:47 12/31/23 01:47 Other Labs: Radiology Impressions Chest X-Ray 12/30/23 22:27 IMPRESSION: 1. Small residual right-sided pleural effusion. 2. Elevation of the left hemidiaphragm with subsegmental atelectasis. Laboratory Results WBC 11.43 10^3/uL (3.29-11.43) 12/31/23 01:47 RBC 4.53 10^6/uL (3.85-5.65) 12/31/23 01:47 Hgb 10.60 g/dL (11.27-16.99) L 12/31/23 01:47 Hct 35.7 % (37-53) L 12/31/23 01:47 MCV 78.8 fl (82-101) L 12/31/23 01:47 MCH 23.4 pg (27-33) L 12/31/23 01:47 MCHC 29.7 g/dL (30-55) L 12/31/23 01:47 RDW 17.3 % (12.1-15.1) H 12/31/23 01:47 Plt Count 576 10^3/cmm (157-399) H 12/31/23 01:47 MPV 9.1 fL (7.4-10.4) 12/31/23 01:47 Neut % (Auto) 90.0 % 12/31/23 01:47 Lymph % (Auto) 4.5 % 12/31/23 01:47 [place] % (Auto) 5.0 % 12/31/23 01:47 Eos % (Auto) 0.0 % 12/31/23 01:47 Baso % (Auto) 0.1 % 12/31/23 01:47 Neut # (Auto) 10.28 10^3/uL (1.8-7.7) H 12/31/23 01:47 Lymph # (Auto) 0.5 10^3/uL (0.8-4.8) L 12/31/23 01:47 [place] # (Auto) 0.6 10^3/uL (0.2-0.9) 12/31/23 01:47 Eos # (Auto) 0.0 10^3/uL (0.0-0.8) 12/31/23 01:47 Baso # (Auto) 0.0 10^3/uL (0.0-0.1) 12/31/23 01:47 Nucleated RBC % (auto) 0 % 12/31/23 01:47 Nucleated RBCs # 0.0 /100WBC 12/31/23 01:47 Differential Comment Yes 12/30/23 16:00 APTT 53.5 SECONDS (23.9-36.7) H 12/31/23 15:40 Specimen Type Arterial 12/30/23 09:11 Sample Site Brachial, right 12/30/23 09:11 ABG pH 7.46 (7.35-7.45) H 12/30/23 09:11 ABG pCO2 45.0 mmHg (35-45) 12/30/23 09:11 ABG pO2 60.4 mmHg (80.0-100.0) L 12/30/23 09:11 ABG PO2/FiO2 Ratio 0 12/30/23 09:11 ABG HCO3 31.8 mmol/L (22-26) H 12/30/23 09:11 ABG O2 Saturation 91.5 12/30/23 09:11 ABG Base Excess 7.1 mmol/L (-2.0-2.0) H 12/30/23 09:11 Humberto Test Pos 12/30/23 09:11 A-a O2 Gradient 11.1 mmHg (5-10) H 12/30/23 09:11 Hematocrit 33.2 % (42-52) L 12/30/23 09:11 Hgb O2 Saturation 90.1 % (95-100) L 12/30/23 09:11 Carboxyhemoglobin 1.4 %THgb (0.4-20.1) 12/30/23 09:11 Methemoglobin 0.1 % (0.4-1.5) L 12/30/23 09:11 Total Hemoglobin 10.8 g/dL (14-18) L 12/30/23 09:11 Sodium 137.0 mmol/L (131-143) 12/30/23 09:11 Potassium 3.7 mmol/L (3.5-5.0) 12/30/23 09:11 Glucose 144.0 mg/dL (70-115) H 12/30/23 09:11 Ionized Calcium 1.3 mmol/L (1.1-1.4) 12/30/23 09:11 O2 Delivery Device Nc 12/30/23 09:11 O2 Liters/Min 2.0 % 12/30/23 09:11 FiO2 28.0 % 12/30/23 09:11 Associate Store Leader ID [place] 12/30/23 09:11 Sodium 138 mmol/L (136-145) 12/31/23 01:47 Potassium 4.0 mmol/L (3.5-5.1) 12/31/23 01:47 Chloride 99 mmol/L (98-107) 12/31/23 01:47 Carbon Dioxide 30 mmol/L (22-29) H 12/31/23 01:47 Anion Gap 13.0 (5-19) 12/31/23 01:47 BUN 12 mg/dL (8-23) 12/31/23 01:47 Creatinine 0.5 mg/dL (0.7-1.2) L 12/31/23 01:47 GFR Calculation 169.6 mL/min (90-130) H 12/31/23 01:47 Glucose 188 mg/dL (65-115) H 12/31/23 01:47 Calculated Osmolality 291 mOsm/kg (285-295) 12/31/23 01:47 Lactic Acid 1.4 mmol/L (0.5-2.2) 12/30/23 15:10 Calcium 9.6 mg/dL (8.5-10.5) 12/31/23 01:47 Phosphorus 3.1 mg/dL (2.5-4.5) 12/31/23 01:47 Magnesium 2.1 mg/dL (1.7-2.3) 12/31/23 01:47 Total Bilirubin 0.4 mg/dL (0.15-1.2) 12/31/23 01:47 AST 16 U/L (0-40) 12/31/23 01:47 ALT 10 U/L (0-41) 12/31/23 01:47 Alkaline Phosphatase 123 U/L (40-130) 12/31/23 01:47 Troponin T Baseline 15 ng/L (0-15) 12/31/23 15:40 Troponin T 120 Minute 14.17 ng/L (0-15) 12/31/23 17:49 Delta Troponin T -0.83 ABS# (0-10) L 12/31/23 17:49 Troponin T Hi Sens 6Hr 18.12 ng/L (0-15) H 12/30/23 15:10 Troponin T Hi Sens 6Hr Delta -3.88 ng/L (0-12) L 12/30/23 15:10 NT-Pro-B Natriuret Pep 2187 pg/mL (0-125) H 12/30/23 09:05 Total Protein 7.8 g/dL (6.6-8.7) 12/31/23 01:47 Albumin 3.2 g/dL (3.5-5.2) L 12/31/23 01:47 Globulin 4.6 g/dL (1.3-4.6) 12/31/23 01:47 Procalcitonin 0.06 ng/mL (0-0.5) 12/30/23 11:54 Urine Color Yellow (Yellow) 12/30/23 13:07 Urine Appearance Clear (CLEAR) 12/30/23 13:07 Urine pH 6.5 (5-7) 12/30/23 13:07 Ur Specific [place] 1.010 (1.005-1.030) 12/30/23 13:07 Urine Protein 1+ (Negative) H 12/30/23 13:07 Urine Glucose (UA) Norm (Normal) 12/30/23 13:07 Urine Ketones 1+ (Negative) H 12/30/23 13:07 Urine Blood Neg (Negative) 12/30/23 13:07 Urine Nitrate Negative (Negative) 12/30/23 13:07 Urine Bilirubin 1+ (Negative) H 12/30/23 13:07 Urine Urobilinogen 1 mg/dL (Negative) H 12/30/23 13:07 Ur Leukocyte Esterase Trace (Negative) H 12/30/23 13:07 Urine RBC 0-4 /hpf (0-2) H 12/30/23 13:07 Urine WBC 0-4 /hpf (0-5) H 12/30/23 13:07 Ur Squamous Epith Cells 0-4 /hpf (0-5) H 12/30/23 13:07 Amorphous Sediment Not Reportable 12/30/23 13:07 Urine Bacteria Trace /hpf (NONE) 12/30/23 13:07 Urine Mucus 2+ /hpf 12/30/23 13:07 Fluid Color Red 12/30/23 16:00 Fluid Appearance Cloudy 12/30/23 16:00 Fluid Specific Grav 1.010 12/30/23 16:00 Fluid pH 8.0 12/30/23 16:00 Fluid WBC 1666 /uL 12/30/23 16:00 Fluid RBC 283.000 10^3/uL 12/30/23 16:00 Fld Polynuclear WBCs # 0.796 12/30/23 16:00 Fld Polynuclear WBCs % 47.800 % 12/30/23 16:00 Fl Mononucl WBCs #(Auto) 0.870 12/30/23 16:00 Fl Mononuclear % Auto 52.200 % 12/30/23 16:00 Fld Crystal Laterality Right pleural fluid 12/30/23 16:00 Fluid Glucose 143.0 mg/dL 12/30/23 16:00 Fluid Albumin 2.7 g/dL 12/30/23 16:00 Fluid LDH 1238 U/L 12/30/23 16:00 Fluid Alk Phosphatase 78 IU/L 12/30/23 16:00 Fluid Cholesterol 90 mg/dL (0-200) 12/30/23 16:00 Fluid Triglycerides 49 mg/dL (0-150) 12/30/23 16:00 Fluid Uric Acid 3 mg/dL 12/30/23 16:00 Pleural Total Protein 5.1 g/dL 12/30/23 16:00 Micro: Microbiology 12/30/23 16:00 Gram Stain - Final Pleural Fluid Anaerobic Culture - Preliminary Body Fluid Culture - Preliminary 12/30/23 10:57 Blood Culture - Preliminary Blood NEGATIVE TO DATE 12/30/23 10:57 Blood Culture - Preliminary Blood NEGATIVE TO DATE 12/30/23 20:46 Gram Stain - Final Sputum - Expectorated Sputum 12/30/23 13:07 Bacterial Antigens - Final Urine,Voided A&P Assessment and plan (1) Loculated pleural effusion: S/p fall couple of days ago CTA showed loculated right pleural effusion Bedside ultrasound examination-confirmed loculated right pleural effusion- thoracentesis yielded 400 cc dark bloody collection-sent for pleural fluid studies Postprocedure chest x-ray-no evidence of pneumothorax and improved right pleural effusion (2) COPD exacerbation: Patient with chronic smoking history having underlying emphysema Okay to continue scheduled nebulizations and IV steroids and taper down based on clinical response (3) Mediastinitis: Patient had recently CABG CTA today showed sternotomy wound dehiscence with no fluid collection-but there is soft tissue inflammation along the central chest wall-possible mediastinitis Patient is currently on IV antibiotics with vancomycin and Zosyn Currently awaiting previous hospitalization records regarding his sternotomy- recommended CT surgery consult (4) Pulmonary embolism: CTA showed indeterminate peripheral nonobstructing segmental emboli Currently on heparin drip Plan 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 As far as pulmonary issues or concern-his right hemithorax was drained yesterday. For suspected mediastinitis and sternal wound dehiscence-recommended to consult CT surgery and continue antibiotics for now Attestations 2 Medical Necessity Statement*: Continue close monitoring in ICU and have low threshold for intubation Time Spent in Patient Care: less than 15 minutes (>than 50% of time spent in counselling and/or direct pt care on unit) . Critical Care Time: The high probability of a clinically significant, sudden or life threatening deterioration of the patient's [pulmonary, cardiac] system(s) required my full and direct attention, intervention and personal management. The critical care time is as shown. This time is in addition to time spent performing any reported procedures but includes the following: [x] Data and vital sign review and interpretation [x] Patient assessment, examination and intervention [x] Documentation [x] Medication orders and management Critical Care Time (min): 49 Coding Level of Care Code Acute Code for Chg Fwd Diagnoses Loculated pleural effusion J90 COPD exacerbation J44.1 Mediastinitis J98.51 Pulmonary embolism I26.99 Time Spent (min) 49
--- NOTE | 2023-12-31 21:43 | ECG_ITS ---
[facility] Test Date: 2023-12-31 Pat Name: Logan Roque Department: Room: ICU01 Gender: Male Election Assistant: : 1965 Requested By: Radha Lagos Order Number: [id number] Reva MD: Bryce Pierre M.D. Measurements Intervals Holly Rate: 92 P: 75 WA: 112 QRS: -12 QRSD: 103 T: 114 QT: 359 QTc: 446 Interpretive Statements SINUS RHYTHM WITH SHORT WA INTERVAL WITH FREQUENT VENTRICULAR PREMATURE COMPLEXES Compared to ECG 12/31/2023 17:41:40 T-wave abnormality no longer present Possible ischemia no longer present Electronically Signed On 01-02-2024 19:46:40 CDT by Bryce Pierre M.D. [id number]
[2023-12-31 21:48] LABS: Partial Thromboplastin Time 57.2 SECONDS (23.9-36.7)
[2023-12-31 21:55] LABS: Troponin 5 6HR 15.03 ng/L (0-15); Troponin 5 6HR Delta 0.03 ng/L (0-12)
[2024-01-01] VITALS (27 sets, daily range): BP systolic 97–130; BP diastolic 62–93; PULSE 84–115; RESP 17–34; TEMP 36.6–36.9; O2SAT 91–100
[2024-01-01] MEDS: ipratropium-albuterol 3 mL Neb INHALATION ×5 (00:50→21:37)
[2024-01-01] MEDS: piperacillin-tazobactam 3.375 GM in sodium chloride 0.9% (plus) 50 ML IV ×3 (00:54→15:59)
[2024-01-01] MEDS: methylPREDNISolone sod succ 40 mg/mL INJ IVP ×2 (01:56→13:36)
--- NOTE | 2024-01-01 02:04 | PC.NURSE ---
Patient became short of breath and complaining of left shoulder pain with increased heart rate and increased work of breathing. When auscultated lungs significant decrease in air movement noted. Notified RT, breathing treatment given. Patient currently sleeping with no respiratory distress noted.
[2024-01-01 03:03] LABS: Basophils % 0.1 %; Hematocrit 31.7 % (37-53); Lymphocytes # 0.8 10^3/uL (0.8-4.8); Lymphocytes % 3.8 %; Mean Corpuscular Hemoglobin 24.1 pg (27-33); Mean Corpuscular Volume 80.3 fl (82-101); Monocytes # 0.9 10^3/uL (0.2-0.9); Monocytes % 4.1 %; Neutrophils # 19.66 10^3/uL (1.8-7.7); Neutrophils % 91.1 %; Nucleated Red Blood Cells % 0 %; Platelet Count 518 10^3/cmm (157-399); Red Blood Count 3.95 10^6/uL (3.85-5.65); Red Cell Distribution Width 17.3 % (12.1-15.1); White Blood Count 21.57 10^3/uL (3.29-11.43)
[2024-01-01 03:18] LABS: Partial Thromboplastin Time 65.9 SECONDS (23.9-36.7)
[2024-01-01 03:26] LABS: Vancomycin Trough 6.4 ug/mL (10-15)
[2024-01-01 03:29] LABS: Alanine Aminotransferase 26 U/L (0-41); Albumin Level 3.1 g/dL (3.5-5.2); Alkaline Phosphatase 107 U/L (40-130); Anion Gap 10.9 (5-19); Aspartate Amino Transferase 35 U/L (0-40); Blood Urea Nitrogen 12 mg/dL (8-23); Calcium 9.2 mg/dL (8.5-10.5); Carbon Dioxide 31 mmol/L (22-29); Chloride 97 mmol/L (98-107); Globulin 3.4 g/dL (1.3-4.6); Glomerular Filtration Rate 169.6 mL/min (90-130); Glucose 209 mg/dL (65-115); Osmolality Calculated 284 mOsm/kg (285-295); Potassium 4.9 mmol/L (3.5-5.1); Sodium 134 mmol/L (136-145); Total Bilirubin 0.2 mg/dL (0.15-1.2); Total Protein 6.5 g/dL (6.6-8.7)
[2024-01-01] MEDS: vancomycin 1,250 MG/250 ML PIGGYBACK 250 MG IV (03:45)
[2024-01-01] MEDS: oxyCODONE-APAP 5-325 mg Tablet 1 TAB PO ×3 (03:45→15:59)
[2024-01-01] MEDS: pantoprazole DR 40 mg Tablet PO (08:02)
[2024-01-01] MEDS: acetaminophen 325 mg Tablet 650 MG PO ×3 (08:02→19:24)
[2024-01-01] MEDS: duloxetine 30 mg Capsule PO (08:02)
[2024-01-01] MEDS: metoprolol succinate ER (24 HR) 25 mg Tablet 12.5 MG PO (08:02)
[2024-01-01] MEDS: clopidogrel 75 mg Tablet PO (08:02)
[2024-01-01] MEDS: fluconazole 100 mg Tablet 200 MG PO (08:03)
--- NOTE | 2024-01-01 08:21 | XRR_ITS ---
PROCEDURE INFORMATION: Exam: XR Chest Exam date and time: 01/01/2024 8:46 AM Age: 58 years old Clinical indication: Cough and dyspnea and shortness of breath; Additional info: Dyspnea/cough TECHNIQUE: Imaging protocol: Radiologic exam of the chest. Views: 1 view. COMPARISON: CR (CHEST, ) 12/30/2023 10:50 PM FINDINGS: Lungs: Mild pulmonary vascular congestion. Pleural spaces: Small right pleural effusion Heart/Mediastinum: Cardiomegaly. Left atrial appendage clip in noted Diaphragm: Elevation left hemidiaphragm. Bones/joints: Unremarkable. XR/XR chest 1V portable [id number] IMPRESSION: Cardiomegaly with mild congestion and small right pleural effusion.
--- NOTE | 2024-01-01 09:09 | USCV_ITS ---
Logan Roque Age: 58 Gender: M : 1965 Exam Date: 01/01/2024 10:21 Ordering Phys: Radha Lagos MD Technologist: CT Exam Location: [facility] [place]_ Indication: chf BP: 130 / 80 HR: 79 Rhythm: Sinus Technical Quality: Adequate MEASUREMENTS (Male / Female) Normal Values 2D ECHO LVOT Diameter 2.1 cm LV Ejection Fraction MOD 2C 23.2 % LV Ejection Fraction 2C AL 22.4 % LA Diameter 4.6 cm RA Systolic Volume 4C AL 51.0 ml RA Systolic Volume 4C MOD 48.4 ml LA Sys Volume AL 82.0 cm cubed LA Sys Volume Index AL 42.1 cm cubed/m squared Aorta at Sinotubular Diameter 1.8 cm IVC Diameter 2.6 cm M-MODE LA Ao Ratio MM 1.9 AV Cusp Separation MM 1.8 cm DOPPLER AV Peak Velocity 155.0 cm/s LVOT Peak Velocity 120.0 cm/s AV Area Cont Eq vti 3.3 cm squared AV Area Cont Eq pk 2.6 cm squared MV Peak Velocity 94.0 cm/s MV Area PHT 4.2 cm squared TV Peak Velocity 161.5 cm/s TR Peak Velocity 168.0 cm/s TR Peak Gradient 11.3 mmHg TV Peak E Velocity 63.0 cm/s Right Atrial Pressure 8.0 mmHg Pulmonary Artery Systolic Pressu 19.3 mmHg PV Peak Velocity 110.5 cm/s FINDINGS Left Ventricle Moderately dilated left-ventricular with severe diffuse hypokinesia. Ejection fraction of 23% Right Ventricle Normal RV size ejection fraction Right Atrium Normal right atrial size Left Atrium Mildly increased left atrial size. Mitral Valve Mild- mitral valve regurgitation. Aortic Valve No gross abnormalities noted Tricuspid Valve Trace tricuspid valve regurgitation. Pulmonic Valve No gross abnormalities noted Pericardium Normal pericardium without effusion. Aorta Normal aortic annulus size. IVC Normal inferior vena cava. CONCLUSIONS Moderately dilated left-ventricular with severe diffuse hypokinesia. Ejection fraction of 23%. Mildly increased left atrial size. Mild- mitral valve regurgitation. Trace tricuspid valve regurgitation. Estimated pulmonary artery peak systolic pressure within normal limits There is no pericardial effusion. There are no intracardiac masses. No similar previous studies are available for comparison Dr Bryce Pierre MD [facility] (Electronically Signed) Final Date: 01 January 2024 19:34 S
[2024-01-01 09:31] LABS: C Reactive Protein 103.5 mg/L (0.0-4.9)
[2024-01-01 09:36] LABS: Erythrocyte Sedimentation Rate 28 mm/hr (0-10)
[2024-01-01] MEDS: FUROsemide 10 mg/mL SDV 10mL 60 MG IVP (10:10)
[2024-01-01 10:33] LABS: Partial Thromboplastin Time 75.6 SECONDS (23.9-36.7)
[2024-01-01] MEDS: vancomycin 1,000 MG in sodium chloride 0.9% 250 ML 250 MG IV ×2 (11:44→19:18)
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
[2024-01-01] MEDS: LORazepam 0.5 mg Tablet 0.125 MG PO (13:36)
--- NOTE | 2024-01-01 13:45 | PC.SOCIAL ---
Pg 2 IMM Explained to pt Pg 2 IMM. No questions voiced. Provided pt a copy. Initialed, dated, & timed a copy & placed in chart.
--- NOTE | 2024-01-01 13:50 | PC.NURSE ---
Mathews Patient asking nurse to remove mathews catheter due to pain.
--- NOTE | 2024-01-01 15:03 | PC.OT ---
Pt seen for OT treatment with pt declining; will attempt again at later time.
[2024-01-01] MEDS: FUROsemide 20 mg Tablet PO (16:00)
[2024-01-01 16:25] LABS: Partial Thromboplastin Time 63.8 SECONDS (23.9-36.7)
[2024-01-01] MEDS: heparin drip 25,000 UNIT/500 ML PREMIX 22 UNIT IV (17:01)
[2024-01-01] MEDS: ondansetron 2 mg/ML SDV 2 mL 4 MG IVP (22:07)
[2024-01-01 22:22] LABS: Partial Thromboplastin Time 48.1 SECONDS (23.9-36.7)
[2024-01-01] MEDS: heparin 5,000 unit/mL INJ 1 mL IV (22:34)
[2024-01-02] VITALS (28 sets, daily range): BP systolic 92–133; BP diastolic 69–90; PULSE 61–112; RESP 18–43; TEMP 36.4–37.1; O2SAT 92–97
[2024-01-02] MEDS: piperacillin-tazobactam 3.375 GM in sodium chloride 0.9% (plus) 50 ML IV ×2 (00:37→08:11)
[2024-01-02] MEDS: oxyCODONE-APAP 5-325 mg Tablet 1 TAB PO ×4 (01:39→23:39)
[2024-01-02] MEDS: ipratropium-albuterol 3 mL Neb INHALATION ×5 (02:26→23:15)
[2024-01-02] MEDS: methylPREDNISolone sod succ 40 mg/mL INJ IVP ×2 (02:52→14:29)
[2024-01-02] MEDS: vancomycin 1,000 MG in sodium chloride 0.9% 250 ML 250 MG IV ×2 (02:53→12:17)
[2024-01-02 06:56] LABS: Partial Thromboplastin Time 70.7 SECONDS (23.9-36.7)
[2024-01-02] MEDS: LORazepam 0.5 mg Tablet 0.125 MG PO ×2 (06:56→17:55)
--- NOTE | 2024-01-02 07:45 | PC.NURSE ---
Bedside report given to AMAN Sharpe.
[2024-01-02] MEDS: metoprolol succinate ER (24 HR) 25 mg Tablet 12.5 MG PO (08:09)
[2024-01-02] MEDS: FUROsemide 20 mg Tablet PO ×2 (08:09→15:43)
[2024-01-02] MEDS: duloxetine 30 mg Capsule PO (08:10)
[2024-01-02] MEDS: pantoprazole DR 40 mg Tablet PO (08:10)
[2024-01-02] MEDS: clopidogrel 75 mg Tablet PO (08:10)
[2024-01-02] MEDS: amiodarone 200 mg Tablet PO (08:10)
[2024-01-02] MEDS: nicotine 21 mg Patch 1 PATCH TRANSDERMA (08:56)
[2024-01-02 10:39] LABS: Basophils % 0.1 %; Hematocrit 34.5 % (37-53); Lymphocytes # 0.4 10^3/uL (0.8-4.8); Lymphocytes % 2.9 %; Mean Corpuscular HGB Conc 29.6 g/dL (30-55); Mean Corpuscular Hemoglobin 23.8 pg (27-33); Mean Corpuscular Volume 80.4 fl (82-101); Monocytes # 0.5 10^3/uL (0.2-0.9); Monocytes % 3.2 %; Neutrophils # 13.92 10^3/uL (1.8-7.7); Nucleated Red Blood Cells % 0 %; Platelet Count 524 10^3/cmm (157-399); Red Blood Count 4.29 10^6/uL (3.85-5.65); Red Cell Distribution Width 17.2 % (12.1-15.1); White Blood Count 14.98 10^3/uL (3.29-11.43)
[2024-01-02 10:57] LABS: Partial Thromboplastin Time 55.6 SECONDS (23.9-36.7)
[2024-01-02 11:03] LABS: Anion Gap 11.3 (5-19); Blood Urea Nitrogen 12 mg/dL (8-23); Carbon Dioxide 33 mmol/L (22-29); Chloride 95 mmol/L (98-107); Glomerular Filtration Rate 169.6 mL/min (90-130); Glucose 289 mg/dL (65-115); Osmolality Calculated 290 mOsm/kg (285-295); Potassium 4.3 mmol/L (3.5-5.1); Sodium 135 mmol/L (136-145); Vancomycin Trough 12.4 ug/mL (10-15)
[2024-01-02 11:17] LABS: Creatinine Clr Calc Pharmacy 160.4711
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
[2024-01-02 18:17] LABS: Partial Thromboplastin Time 24.2 SECONDS (23.9-36.7)
[2024-01-02] MEDS: apixaban 5 mg Tablet PO (20:45)
--- NOTE | 2024-01-02 22:56 | ECG_ITS ---
[facility] Test Date: 2024-01-02 Pat Name: Logan Roque Department: Room: 273 Gender: Male Design Leader: : 1965 Requested By: Lb Bangura Order Number: [id number] Reva MD: Bryce Pierre M.D. Measurements Intervals [place] Rate: 108 P: 82 NH: 128 QRS: -23 QRSD: 104 T: 130 QT: 329 QTc: 442 Interpretive Statements SINUS TACHYCARDIA WITH FREQUENT VENTRICULAR PREMATURE COMPLEXES WITH OCCASIONAL SUPRAVENTRICULAR PREMATURE COMPLEXES MODERATE T-WAVE ABNORMALITY, CONSIDER LATERAL ISCHEMIA [-0.1+ mV T-WAVE IN I/aVL/V5/V6] Compared to ECG 12/31/2023 21:43:07 Ventricular premature complex(es) now present T-wave abnormality now present Possible ischemia now present Sinus rhythm no longer present Short NH interval no longer present Electronically Signed On 01-03-2024 22:42:54 CDT by Bryce Pierre M.D. [id number]
[2024-01-03] VITALS (17 sets, daily range): BP systolic 109–146; BP diastolic 69–90; PULSE 83–118; RESP 18–22; TEMP 36.5–36.7; O2SAT 96–98
[2024-01-03] MEDS: methylPREDNISolone sod succ 40 mg/mL INJ IVP (02:26)
[2024-01-03] MEDS: acetaminophen 325 mg Tablet 650 MG PO ×2 (04:27→15:44)
[2024-01-03] MEDS: oxyCODONE-APAP 5-325 mg Tablet 1 TAB PO ×3 (05:45→17:59)
[2024-01-03] MEDS: LORazepam 0.5 mg Tablet 0.125 MG PO (05:45)
[2024-01-03 05:46] LABS: Glucose Point of Care 218 mg/dL (70-110)
[2024-01-03] MEDS: ipratropium-albuterol 3 mL Neb INHALATION ×3 (06:05→19:40)
[2024-01-03] MEDS: metoprolol succinate ER (24 HR) 25 mg Tablet 12.5 MG PO (08:40)
[2024-01-03] MEDS: apixaban 5 mg Tablet PO ×2 (08:41→21:11)
[2024-01-03] MEDS: nicotine 21 mg Patch 1 PATCH TRANSDERMA (08:41)
[2024-01-03] MEDS: fluconazole 100 mg Tablet 200 MG PO (08:41)
[2024-01-03] MEDS: pantoprazole DR 40 mg Tablet PO (08:41)
[2024-01-03] MEDS: amiodarone 200 mg Tablet PO (08:41)
[2024-01-03] MEDS: clopidogrel 75 mg Tablet PO (08:41)
[2024-01-03] MEDS: duloxetine 30 mg Capsule PO (08:41)
[2024-01-03] MEDS: FUROsemide 20 mg Tablet PO ×2 (08:41→15:44)
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
[2024-01-03] MEDS: predniSONE 20 mg Tablet 40 MG PO (15:44)
[2024-01-03] MEDS: amoxicillin-clav 875-125 mg Tablet 1 TAB PO (17:59)
[2024-01-03] MEDS: HYDROcodone-acetaminophen 10-325 mg Tablet 1 TAB PO (21:11)
[2024-01-04] VITALS (9 sets, daily range): BP systolic 100–147; BP diastolic 70–94; PULSE 95–107; RESP 16–19; TEMP 36.4–36.7; O2SAT 95–98
[2024-01-04] MEDS: oxyCODONE-APAP 5-325 mg Tablet 1 TAB PO ×2 (03:14→09:21)
[2024-01-04] MEDS: ondansetron 2 mg/ML SDV 2 mL 4 MG IVP (09:21)
[2024-01-04] MEDS: amiodarone 200 mg Tablet PO (09:22)
[2024-01-04] MEDS: duloxetine 30 mg Capsule PO (09:22)
[2024-01-04] MEDS: FUROsemide 20 mg Tablet PO (09:22)
[2024-01-04] MEDS: pantoprazole DR 40 mg Tablet PO (09:22)
[2024-01-04] MEDS: amoxicillin-clav 875-125 mg Tablet 1 TAB PO (09:22)
[2024-01-04] MEDS: clopidogrel 75 mg Tablet PO (09:22)
[2024-01-04] MEDS: nicotine 21 mg Patch 1 PATCH TRANSDERMA (09:23)
[2024-01-04] MEDS: metoprolol succinate ER (24 HR) 25 mg Tablet 12.5 MG PO (09:23)
[2024-01-04] MEDS: apixaban 5 mg Tablet PO (09:29)
[2024-01-04] MEDS: predniSONE 20 mg Tablet 40 MG PO (09:46)
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
[2024-01-04] MEDS: ipratropium-albuterol 3 mL Neb INHALATION (13:46)
--- NOTE | 2024-01-04 14:11 | PC.SOCIAL ---
IMM Updated Updated pt on IMM. No questions voiced. Provided pt a copy. Initialed, dated, & timed copy in chart.
[2024-01-06 15:48] LABS: Amylase, Pleural Fluid <10 U/L
== END 2024-01-04 13:55 | disposition home or self-care (01) | DRG 175 ==
LOC: ER 12:06 → ER IP 18:29 → ICU 18:48 → MEDSURG 01-02 13:00
PROVIDERS: Internal Medicine; Internal Medicine Pulmonary Disease; Admitting Provider Internal Medicine; Emergency Provider Family Medicine; Visit Provider Internal Medicine
DX: I26.99 Other pulmonary embolism without acute cor pulmonale (principal); J18.9 Pneumonia, unspecified organism; J96.21 Acute and chronic respiratory failure with hypoxia; J98.51 Mediastinitis; T81.31XA Disruption of external operation (surgical) wound, not elsewhere classified, initial encounter; I25.10 Atherosclerotic heart disease of native coronary artery without angina pectoris; F17.200 Nicotine dependence, unspecified, uncomplicated; J43.9 Emphysema, unspecified; E11.9 Type 2 diabetes mellitus without complications; B37.9 Candidiasis, unspecified; T23.002D Burn of unspecified degree of left hand, unspecified site, subsequent encounter; W40.8XXD Explosion of other specified explosive materials, subsequent encounter; Z95.1 Presence of aortocoronary bypass graft; Z99.81 Dependence on supplemental oxygen; Z79.02 Long term (current) use of antithrombotics/antiplatelets; I25.2 Old myocardial infarction; Z91.81 History of falling; Z86.14 Personal history of Methicillin resistant Staphylococcus aureus infection
CPT/HCPCS: 36415; 36416; 36600; 51702; 71045; 71275; 80048; 80051; 80053; 80202; 80503; 81001; 82042; 82150; 82330; 82465; 82805; 82945; 82962; 83605; 83615; 83735; 83880; 83986; 84075; 84100; 84145; 84157; 84315; 84478; 84484; 84560; 85025; 85651; 85730; 86140; 86403; 87015; 87040; 87070; 87075; 87116; 87205; 87206; 87801; 89050; 93005; 93306; 94640; 96365; 96366; 96367; 96372; 96375; 96376; 97110; 97116; 97161; 97166; 97530; 97535; 99285; J1100; J1644; J1940; J2405; J2543; J2919; J3370; J7030; J7050; J7512; Q9967